=== PATIENT | male | born 1940 | race Hispanic/Latino ===

== ENCOUNTER 2017-11-29 15:32 | Emergency (ER) | payer MEDICARE ==
[2017-11-29] MEDS ORDERED: ONDANSETRON HCL 4 MG/2 ML VIAL ONE (15:41)
[2017-11-29] MEDS ORDERED: SODIUM CHLORIDE 0.9% 1000ML 1,000 ML IV ONE (16:01)
[2017-11-29 16:10] LABS: HEMATOCRIT 40.5 % (42-54); LYMPHOCYTES % (AUTO) 24.7 % (21.0-51.0); MEAN CORPUSCULAR HEMOGLOBIN 30.5 pg (27.0-33.0); MEAN CORPUSCULAR HGB CONC 35.2 g/dL (32.0-36.0); MEAN CORPUSCULAR VOLUME 86.7 fL (79-99); MONOCYTES % (AUTO) 10.4 % (3.0-13.0); NEUTROPHILS % (AUTO) 62.9 % (40.0-77.0); NUCLEATED RED BLOOD CELLS 0.2 % (0.0-0.19); PLATELET COUNT (AUTO) 129 K/uL (130-400); RED BLOOD CELL COUNT(AUTO) 4.67 MIL/uL (4.50-6.20); RED CELL DISTRIBUTION WIDTH 14.7 % (11.0-15.5); WHITE BLOOD COUNT (AUTO) 3.6 K/uL (4.8-10.8)
[2017-11-29 16:22] LABS: CREATININE 1.3 mg/dL (0.5-1.5)
[2017-11-29 16:23] LABS: INR 0.9 (0.85-1.15); PARTIAL THROMBOPLASTIN TIME 27.5 SEC (26.3-35.5); PROTHROMBIN TIME 9.5 SEC (9.6-11.6)
[2017-11-29 16:48] LABS: ALBUMIN 3.4 g/dL (3.5-5.0); BILIRUBIN,TOTAL 0.8 mg/dL (0.2-1.0); CREATINE KINASE MB 3.2 ng/mL (0.5-3.6)
[2017-11-29 16:50] LABS: APPEARANCE,URINE Clear (CLEAR); BILIRUBIN,URINE Negative (NEGATIVE); COLOR,URINE Yellow (YELLOW); GLUCOSE, URINE (UA) Negative (NEGATIVE); KETONES,URINE Negative (NEGATIVE); LEUKOCYTE ESTERASE ,URINE Negative (NEGATIVE); NITRATE,URINE Negative (NEGATIVE); OCCULT BLOOD,URINE Negative (NEGATIVE); PROTEIN,URINE POS 1+ (NEGATIVE)
[2017-11-29 16:58] LABS: BACTERIA,URINE Rare /HPF (None Seen); RBC,URINE 0-1 /HPF (0-1); SQUAMOUS EPITHELIAL CELL,UR Rare /LPF (0-2); WBC,URINE 0-1 /HPF (0-1)
[2017-11-29] MEDS ORDERED: HYOSCYAMINE SULFATE 0.125 MG TAB.SUBL SL ONE (18:24)
== END 2017-11-29 18:44 | disposition home or self-care (01) ==
LOC: EDH 15:32
DX: K85.90 Acute pancreatitis without necrosis or infection, unspecified (principal); J10.1 Influenza due to other identified influenza virus with other respiratory manifestations; E11.9 Type 2 diabetes mellitus without complications; I10 Essential (primary) hypertension; R10.84 Generalized abdominal pain; Z88.0 Allergy status to penicillin; Z79.4 Long term (current) use of insulin; R11.2 Nausea with vomiting, unspecified
CPT/HCPCS: 36415; 71045; 74176; 80053; 81001; 82150; 82550; 82553; 83690; 84484; 85025; 85610; 85730; 87804 ×2; 93005; 96361; 96374; 99285; J2405; J7030

== ENCOUNTER 2020-03-29 20:47 | Observation (INO) | payer OTHER, MEDICARE ==
[~2020-03-29] VITALS: Ht 167.6 cm; Wt 87.4 kg
[2020-03-29 21:23] LABS: BASOPHILS % (AUTO) 1.7 % (0.0-5.0); EOSINOPHILS % (AUTO) 2.6 % (0.0-8.0); HEMATOCRIT 34.9 % (42-54); LYMPHOCYTES % (AUTO) 18.4 % (21.0-51.0); MEAN CORPUSCULAR HEMOGLOBIN 29.8 pg (27.0-33.0); MEAN CORPUSCULAR HGB CONC 33.5 g/dL (32.0-36.0); MEAN CORPUSCULAR VOLUME 88.8 fL (79-99); MONOCYTES % (AUTO) 7.6 % (3.0-13.0); NEUTROPHILS % (AUTO) 69.2 % (40.0-77.0); PLATELET COUNT (AUTO) 173 K/uL (130-400); RED BLOOD CELL COUNT(AUTO) 3.93 MIL/uL (4.50-6.20); RED CELL DISTRIBUTION WIDTH 13.9 % (11.0-15.5); WHITE BLOOD COUNT (AUTO) 6.4 K/uL (4.8-10.8)
[2020-03-29 21:35] LABS: CREATININE 1.6 mg/dL (0.5-1.5); POTASSIUM 4.2 mmol/L (3.5-5.1)
[2020-03-29 21:39] LABS: INR 0.94 (0.85-1.15); PARTIAL THROMBOPLASTIN TIME 25.8 SEC (26.3-35.5); PROTHROMBIN TIME 10.2 SEC (9.6-11.6)
[2020-03-29 21:40] LABS: ALBUMIN 3.2 g/dL (3.5-5.0); BILIRUBIN,TOTAL 0.7 mg/dL (0.2-1.0); TOTAL PROTEIN, SERUM 6.6 g/dL (6.0-8.3)
[2020-03-29 21:45] LABS: ABG BASE EXCESS -0.4 mmol/L (-2.0-3.0); ABG HCO3 24.1 mmol/L (21.0-28.0); ABG OXYGEN SATURATION 93.4 % (95.0-99.0); ABG PCO2 39 mmHg (35-48)
[2020-03-29] MEDS ORDERED: FUROSEMIDE 10 MG/ML 4ML VIAL ONE (22:40)
[2020-03-29] MEDS ORDERED: FUROSEMIDE 10 MG/ML 2ML VIAL ONE (22:40)
[2020-03-29] MEDS ORDERED: SODIUM CHLORIDE 0.9% 500 ML IV ONE (22:49)
[2020-03-29 23:15] LABS: APPEARANCE,URINE Clear (CLEAR); BILIRUBIN,URINE Negative (NEGATIVE); COLOR,URINE Yellow (YELLOW); GLUCOSE, URINE (UA) 500 mg/dL (NEGATIVE); KETONES,URINE Negative (NEGATIVE); LEUKOCYTE ESTERASE ,URINE Negative (NEGATIVE); NITRATE,URINE Negative (NEGATIVE); OCCULT BLOOD,URINE Negative (NEGATIVE); PH,URINE 6.5 (5.0-8.0); PROTEIN,URINE POS 1+ mg/dL (NEGATIVE)
[2020-03-29 23:23] LABS: RBC,URINE None Seen /HPF (0-1); WBC,URINE None Seen /HPF (0-1)
[2020-03-29 23:24] LABS: BACTERIA,URINE Rare /HPF (None Seen); MUCUS,URINE Moderate LPF (None Seen); RENAL EPITHELIAL CELLS,URINE Few /HPF (None Seen); SQUAMOUS EPITHELIAL CELL,UR Moderate /HPF (0-2)
[2020-03-30 03:30] VITALS: BP 136/68
--- NOTE | 2020-03-30 04:00 | NUR ---
ARRIVED ON UNIT. AMBULATED TO THE BED. C/O OF SOB WITH EXERTION. CURRENTLY ON RA 97% SATS. STATES HE FEELS BETTER AFTER LASIX GIVEN IN ED. DENIES CHEST PAIN. DOES HAVE BLE +1 PITTING EDEMA. ADVISED PATIENT TO USE URINAL FOR PROPER MEASUREMENT OF OUTPUT. CALL LIGHT WITHIN REACH. WILL CONTINUE TO MONITOR.
[2020-03-30] MEDS ORDERED: MAGNESIUM 2GM PREMIX 50ML 50 ML IV PRN (06:00)
[2020-03-30] MEDS ORDERED: TEMAZEPAM 7.5 MG CAPSULE PO PRN (06:30)
[2020-03-30] MEDS ORDERED: HYDRALAZINE HCL 20 MG/ML VIAL IV PRN (06:30)
[2020-03-30] MEDS ORDERED: ACETAMINOPHEN 325 MG TAB PO PRN (06:30)
[2020-03-30] MEDS ORDERED: ONDANSETRON HCL 4 MG/2 ML VIAL IVP PRN (06:30)
[2020-03-30 08:09] VITALS: BP 139/69
[2020-03-30 08:38] LABS: EOSINOPHILS % (AUTO) 3.3 % (0.0-8.0); HEMATOCRIT 37.2 % (42-54); LYMPHOCYTES % (AUTO) 22.2 % (21.0-51.0); MEAN CORPUSCULAR HEMOGLOBIN 29.6 pg (27.0-33.0); MEAN CORPUSCULAR HGB CONC 33.1 g/dL (32.0-36.0); MEAN CORPUSCULAR VOLUME 89.6 fL (79-99); PLATELET COUNT (AUTO) 183 K/uL (130-400); RED BLOOD CELL COUNT(AUTO) 4.15 MIL/uL (4.50-6.20); RED CELL DISTRIBUTION WIDTH 13.9 % (11.0-15.5)
[2020-03-30] MEDS: PANTOPRAZOLE SODIUM 40 MG TABLET.DR PO SCH (08:59)
[2020-03-30] MEDS: LISINOPRIL 5 MG TABLET PO SCH (08:59)
[2020-03-30] MEDS: ASPIRIN 81MG TAB.CHEW PO SCH (08:59)
[2020-03-30] MEDS: METOPROLOL TARTRATE 25 MG TAB PO SCH ×2 (09:00→20:40)
[2020-03-30] MEDS: FUROSEMIDE 20 MG TABLET PO SCH ×2 (09:00→20:40)
[2020-03-30] MEDS: ENOXAPARIN SODIUM 40 MG/0.4 ML SYRINGE SQ SCH (09:00)
[2020-03-30 09:04] LABS: B-TYPE NATRIURETIC PEPTIDE 254 pg/mL (0-100)
[2020-03-30 09:07] LABS: CARBON DIOXIDE 32 mmol/L (21-32); CHLORIDE 102 mmol/L (101-111); CREATINE KINASE, TOTAL 208 U/L (21-232); CREATININE 1.7 mg/dL (0.5-1.5); GLOMERULAR FILTR. RATE CALC 42 mL/min (>60); GLUCOSE,RANDOM 168 mg/dL (70-105); MYOGLOBIN 387 ng/mL (10-92); SODIUM SERUM 138 mmol/L (136-145); TROPONIN I < 0.04 ng/mL (0.00-0.06); UREA NITROGEN, BLOOD 19 mg/dL (7-18)
[2020-03-30 12:15] VITALS: BP 143/75
[2020-03-30] MEDS ORDERED: ISOS30TA6 PO (12:27)
[2020-03-30] MEDS ORDERED: LEVO50TA11 PO (12:27)
[2020-03-30] MEDS ORDERED: PANT40TA PO (12:27)
[2020-03-30] MEDS ORDERED: LOSA100T58 PO (12:27)
[2020-03-30] MEDS ORDERED: ATEN25TA PO (12:27)
[2020-03-30] MEDS ORDERED: SUCR1TAB2 PO (12:27)
[2020-03-30] MEDS ORDERED: INSU100V12 SQ ×2 (12:33)
[2020-03-30] MEDS ORDERED: ASPI-1197 PO (12:33)
[2020-03-30] MEDS ORDERED: INSU100V39 SQ (12:33)
[2020-03-30] MEDS ORDERED: GLIP5TAB11 PO (12:33)
[2020-03-30] MEDS ORDERED: SUCRALFATE 1 GM TABLET PO SCH (16:30)
[2020-03-30] MEDS: INSULIN LISPRO 100 UNIT/ML 3ML SQ SCH (16:51)
[2020-03-30 16:56] VITALS: BP 150/77
[2020-03-30 19:00] VITALS: BP 152/72
--- NOTE | 2020-03-30 20:40 | NUR ---
MEDS SHIFT ASSESSMENT DONE, PLEASE REFER TO CHART. DUE MEDS ADMINISTERED, TOLERATED WELL. KEPT RESTED AND COMFORTABLE. CALL LIGHT WITHIN REACH. WILL MONITOR PT. Addendum: 03/30/20 at 2359 by ARACELI PASTRANA RN RN Amended: Links added.
[2020-03-31] VITALS: BP 147/70
--- NOTE | 2020-03-31 02:00 | NUR ---
ROUNDS OT RESTING WELL, FAIRLY ASLEEP. NO DISTRESS NOTED. KEPT UNDISTURBED FOR NOW. WILL MONITOR PT. CALL LIGHT WITHIN REACH.
--- NOTE | 2020-03-31 03:30 | NUR ---
DYSPNEA PT CLAIMS OF DIFFICULTY BREATHING. V/S MONITORED WITH O2 SAT=98% ON RA. RE-POSITIONED PT IN BED WITH HOB ELEVATED. O2 AT 2LPM VIA NC PROVIDED. WILL RE-ASSESS PT.
[2020-03-31 04:00] VITALS: BP 134/69
[2020-03-31 05:12] LABS: HEMATOCRIT 39.6 % (42-54); MEAN CORPUSCULAR HEMOGLOBIN 29.8 pg (27.0-33.0); MEAN CORPUSCULAR HGB CONC 33.6 g/dL (32.0-36.0); MEAN CORPUSCULAR VOLUME 88.6 fL (79-99); RED BLOOD CELL COUNT(AUTO) 4.47 MIL/uL (4.50-6.20); RED CELL DISTRIBUTION WIDTH 13.6 % (11.0-15.5); WHITE BLOOD COUNT (AUTO) 6.1 K/uL (4.8-10.8)
[2020-03-31 05:37] LABS: CREATININE 1.7 mg/dL (0.5-1.5); MAGNESIUM 2.2 mg/dL (1.80-2.40); POTASSIUM 4.1 mmol/L (3.5-5.1)
[2020-03-31] MEDS: GLIPIZIDE 5 MG TABLET PO SCH (06:40)
--- NOTE | 2020-03-31 06:43 | NUR ---
MEDS PT IS ALREADY UP AND SITTING DOWN IN THE RECLINER. NO COMPLAINTS VERBALIZED. DUE MEDS ADMINISTERED, TOLERATED WELL. KEPT RESTED. FOR MORE CARE.
[2020-03-31] MEDS: LEVOTHYROXINE 50 MCG TABLET PO SCH (07:49)
[2020-03-31] MEDS: INSULIN LISPRO 100 UNIT/ML 3ML SQ SCH ×3 (07:57→16:58)
[2020-03-31 08:16] VITALS: BP 125/68
--- NOTE | 2020-03-31 08:16 | NUR ---
CARDIOLOGY CONSULT DR GARCIA SAID HE WILL FOLLOW WITH PATIENT AN OUTPATIENT IN 1 WEEK. HE HAS ALREADY READ THE 2D ECHO AND PATIENT OK FOR DISCHARGE ON CARDIOLOGY STANDPOINT.
[2020-03-31] MEDS: PANTOPRAZOLE SODIUM 40 MG TABLET.DR PO SCH (08:49)
[2020-03-31] MEDS: FUROSEMIDE 20 MG TABLET PO SCH ×2 (08:49→20:15)
[2020-03-31] MEDS: ISOSORBIDE MONO 30MG TAB SR PO SCH (08:52)
[2020-03-31] MEDS: LOSARTAN 100 MG TABLET PO SCH (08:52)
[2020-03-31] MEDS: ASPIRIN 81MG TAB.CHEW PO SCH (08:52)
[2020-03-31] MEDS: LISINOPRIL 5 MG TABLET PO SCH (08:53)
[2020-03-31] MEDS: METOPROLOL TARTRATE 25 MG TAB PO SCH ×2 (08:54→20:15)
[2020-03-31] MEDS: ATENOLOL 25 MG TABLET PO SCH (08:54)
[2020-03-31] MEDS: ENOXAPARIN SODIUM 40 MG/0.4 ML SYRINGE SQ SCH (08:55)
[2020-03-31 12:25] VITALS: BP 106/57
[2020-03-31 16:30] VITALS: BP 126/61
[2020-03-31 20:00] VITALS: BP 116/60
[2020-04-01] VITALS: BP 126/62
[2020-04-01 04:02] LABS: EOSINOPHILS % (AUTO) 2.8 % (0.0-8.0); HEMATOCRIT 37.9 % (42-54); LYMPHOCYTES % (AUTO) 24.5 % (21.0-51.0); MEAN CORPUSCULAR HEMOGLOBIN 29.4 pg (27.0-33.0); MEAN CORPUSCULAR VOLUME 86.3 fL (79-99); MONOCYTES % (AUTO) 9.7 % (3.0-13.0); NEUTROPHILS % (AUTO) 60.7 % (40.0-77.0); PLATELET COUNT (AUTO) 202 K/uL (130-400); RED BLOOD CELL COUNT(AUTO) 4.39 MIL/uL (4.50-6.20); RED CELL DISTRIBUTION WIDTH 13.7 % (11.0-15.5); WHITE BLOOD COUNT (AUTO) 6.4 K/uL (4.8-10.8)
[2020-04-01 04:04] VITALS: BP 90/47
[2020-04-01 04:25] LABS: ALANINE AMINOTRANSFERASE 25 U/L (12-78); ALBUMIN 3.4 g/dL (3.5-5.0); ASPARTATE AMINOTRANSFERASE 24 U/L (10-37); BILIRUBIN,TOTAL 1.2 mg/dL (0.2-1.0); CARBON DIOXIDE 28 mmol/L (21-32); CHLORIDE 98 mmol/L (101-111); CREATININE 1.8 mg/dL (0.5-1.5); GLOMERULAR FILTR. RATE CALC 39 mL/min (>60); GLUCOSE,RANDOM 254 mg/dL (70-105); POTASSIUM 4.2 mmol/L (3.5-5.1); SODIUM SERUM 134 mmol/L (136-145); TOTAL PROTEIN, SERUM 6.8 g/dL (6.0-8.3); UREA NITROGEN, BLOOD 30 mg/dL (7-18)
[2020-04-01] MEDS: GLIPIZIDE 5 MG TABLET PO SCH (06:10)
[2020-04-01] MEDS: LEVOTHYROXINE 50 MCG TABLET PO SCH (08:15)
[2020-04-01] MEDS: METOPROLOL TARTRATE 25 MG TAB PO SCH (08:15)
[2020-04-01] MEDS: LOSARTAN 100 MG TABLET PO SCH (08:16)
[2020-04-01] MEDS: LISINOPRIL 5 MG TABLET PO SCH (08:16)
[2020-04-01] MEDS: PANTOPRAZOLE SODIUM 40 MG TABLET.DR PO SCH (08:16)
[2020-04-01] MEDS: ISOSORBIDE MONO 30MG TAB SR PO SCH (08:16)
[2020-04-01] MEDS: ATENOLOL 25 MG TABLET PO SCH (08:16)
[2020-04-01] MEDS: ENOXAPARIN SODIUM 40 MG/0.4 ML SYRINGE SQ SCH (08:19)
[2020-04-01] MEDS: ASPIRIN 81MG TAB.CHEW PO SCH (08:19)
[2020-04-01] MEDS: INSULIN LISPRO 100 UNIT/ML 3ML SQ SCH ×2 (08:20→11:38)
[2020-04-01 08:30] VITALS: BP 107/56
[2020-04-01] MEDS ORDERED: SODIUM CHLORIDE 0.9% 500ML 500 ML IV SCH (11:15)
[2020-04-01 11:30] VITALS: BP 107/56
[2020-04-01 15:19] LABS: CREATININE 1.7 mg/dL (0.5-1.5); POTASSIUM 4.3 mmol/L (3.5-5.1)
--- NOTE | 2020-04-01 15:49 | NUR ---
DCP CM met with pt discussed dc plans. Pt is independent prior to admission, lives at home w/a female friend María Beltran . Denies any other equipments/services. Feels safe to go back home, still drives, friend able to assist with transportation as necessary, pt arranges own needs. DC plan to home once stable. CM to cont to follow up. Addendum: 04/01/20 at 1551 by RAYMOND CHANEY LVN CM Amended: Links added.
[2020-04-01 16:49] VITALS: BP 127/61
--- NOTE | 2020-04-01 17:40 | NUR ---
DISCHARGE VERBAL & WRITTEN DISCHARGE INSTRUCTIONS REVIEWED & GIVEN TO PT IN [place]. QUESTIONS ENCOURAGED & CLARIFIED. PROPER CARE & MGT OF SOB REVIEWED. STOPPED MEDICATION REVIEWED. PT INFORMED TO F/U W/PCP, DR ZAYAS, SCHEDULED. TELE CARLITA REMOVED EARLIER. IV DC'D @ THIS TIME. [place] DIRECTOR NEWS [place] [facility] [place] TO GATHER PERSONAL BELONGINGS.
--- NOTE | 2020-04-01 18:30 | NUR ---
DISCHARGE FAMILY HERE TO TAKE PT HOME. PT TAKEN TO PRIVATE VEHICLE VIA WC BY MYSELF, Bri SANDERSON RN. NO DISTRESS NOTED.
[2020-04-02] MEDS ORDERED: LEVOTHYROXINE 50 MCG TABLET PO SCH (06:30)
== END 2020-04-01 18:30 | disposition home or self-care (01) ==
LOC: EDH 20:47 → EDHIP 23:09 → 4AH 03-30 03:14
PROVIDERS: ADMIT Internal Medicine Pulmonary Disease; ATTEND Internal Medicine Pulmonary Disease
DX: J98.11 Atelectasis (principal); I13.0 Hypertensive heart and chronic kidney disease with heart failure and stage 1 through stage 4 chronic kidney disease, or unspecified chronic kidney disease; E11.22 Type 2 diabetes mellitus with diabetic chronic kidney disease; I50.9 Heart failure, unspecified; N18.3 Chronic kidney disease, stage 3 (moderate); I25.10 Atherosclerotic heart disease of native coronary artery without angina pectoris; E66.9 Obesity, unspecified; Z79.4 Long term (current) use of insulin; Z79.82 Long term (current) use of aspirin; Z87.891 Personal history of nicotine dependence; Z88.0 Allergy status to penicillin; Z95.1 Presence of aortocoronary bypass graft; Z79.899 Other long term (current) drug therapy
CPT/HCPCS: 36415 ×4; 36600; 71045 ×2; 71250; 78582; 80048 ×3; 80053 ×2; 81001; 82550 ×2; 82803; 82948 ×11; 83735 ×4; 83874; 83880 ×3; 84145; 84484 ×3; 85025 ×3; 85027; 85378; 85610; 85730; 93005 ×3; 93306; 93356; 93970; 94760; 96365; 96366; 96372 ×3; 99285; A9540; A9558; G0378 ×2; J1650 ×3; J1940 ×2; J3475; J7050

== ENCOUNTER 2020-05-25 13:25 | Observation (INO) | payer OTHER, MEDICARE ==
[~2020-05-25] VITALS: Ht 165.1 cm; Wt 89.2 kg
[~2020-05-25 13:25] MED LIST: ASPI-1197 PO; ATEN25TA PO; GLIP5TAB11 PO; INSU100V12 SQ; INSU100V39 SQ; ISOS30TA6 PO; LEVO50TA11 PO; PANT40TA PO
[2020-05-25 13:52] LABS: BASOPHILS % (AUTO) 1.4 % (0.0-5.0); EOSINOPHILS % (AUTO) 2.7 % (0.0-8.0); HEMATOCRIT 36.9 % (42-54); LYMPHOCYTES % (AUTO) 21.2 % (21.0-51.0); MEAN CORPUSCULAR HEMOGLOBIN 29.7 pg (27.0-33.0); MEAN CORPUSCULAR HGB CONC 33.3 g/dL (32.0-36.0); MEAN CORPUSCULAR VOLUME 89.1 fL (79-99); MONOCYTES % (AUTO) 8.8 % (3.0-13.0); NEUTROPHILS % (AUTO) 65.7 % (40.0-77.0); PLATELET COUNT (AUTO) 154 K/uL (130-400); RED BLOOD CELL COUNT(AUTO) 4.14 MIL/uL (4.50-6.20); RED CELL DISTRIBUTION WIDTH 13.8 % (11.0-15.5); WHITE BLOOD COUNT (AUTO) 5.7 K/uL (4.8-10.8)
[2020-05-25] MEDS ORDERED: ASPIRIN 325MG EC TAB 325 MG TABLET.DR PO ONE (14:11)
[2020-05-25] MEDS ORDERED: FUROSEMIDE 10 MG/ML 4ML VIAL ONE (14:11)
[2020-05-25 14:18] LABS: INR 0.95 (0.85-1.15); PROTHROMBIN TIME 10.3 SEC (9.6-11.6)
[2020-05-25 14:25] LABS: BILIRUBIN,TOTAL 0.8 mg/dL (0.2-1.0); POTASSIUM 4.2 mmol/L (3.5-5.1); TOTAL PROTEIN, SERUM 6.8 g/dL (6.0-8.3)
[2020-05-25 14:48] LABS: B-TYPE NATRIURETIC PEPTIDE 485 pg/mL (0-100)
[2020-05-25 14:59] LABS: CREATININE 1.6 mg/dL (0.5-1.5)
[2020-05-25 15:01] LABS: ALBUMIN 3.4 g/dL (3.5-5.0)
[2020-05-25] MEDS ORDERED: ONDANSETRON HCL 4 MG/2 ML VIAL IV PRN (15:45)
[2020-05-25] MEDS ORDERED: HYDRALAZINE HCL 20 MG/ML VIAL IV PRN (15:45)
[2020-05-25] MEDS ORDERED: ACETAMINOPHEN 325 MG TAB PO PRN (15:45)
[2020-05-25] MEDS ORDERED: HEPARIN SODIUM 5000UNIT/ML 1ML VIAL ONE (20:20)
[2020-05-25] MEDS ORDERED: FUROSEMIDE 10 MG/ML 2ML VIAL ONE (20:20)
[2020-05-25] MEDS ORDERED: FAMOTIDINE/PF 20 MG/2 ML VIAL IV ONE (20:21)
[2020-05-25] MEDS: HEPARIN SODIUM 5000UNIT/ML 1ML VIAL SQ SCH (21:00)
[2020-05-25] MEDS ORDERED: FAMOTIDINE 20MG TAB 20 MG TAB PO SCH (21:00)
[2020-05-25] MEDS: FUROSEMIDE 10 MG/ML 2ML VIAL IV SCH (21:00)
[2020-05-26 04:29] LABS: BASOPHILS % (AUTO) 1.7 % (0.0-5.0); EOSINOPHILS % (AUTO) 2.8 % (0.0-8.0); HEMATOCRIT 39.4 % (42-54); LYMPHOCYTES % (AUTO) 19.3 % (21.0-51.0); MEAN CORPUSCULAR HEMOGLOBIN 29.8 pg (27.0-33.0); MEAN CORPUSCULAR HGB CONC 33.8 g/dL (32.0-36.0); MEAN CORPUSCULAR VOLUME 88.1 fL (79-99); MONOCYTES % (AUTO) 8.1 % (3.0-13.0); NEUTROPHILS % (AUTO) 67.8 % (40.0-77.0); PLATELET COUNT (AUTO) 111 K/uL (130-400); RED BLOOD CELL COUNT(AUTO) 4.47 MIL/uL (4.50-6.20); RED CELL DISTRIBUTION WIDTH 13.9 % (11.0-15.5); WHITE BLOOD COUNT (AUTO) 6.4 K/uL (4.8-10.8)
[2020-05-26 04:49] LABS: CARBON DIOXIDE 30 mmol/L (21-32); CHLORIDE 103 mmol/L (101-111); CREATININE 1.6 mg/dL (0.5-1.5); GLOMERULAR FILTR. RATE CALC 45 mL/min (>60); GLUCOSE,RANDOM 81 mg/dL (70-105); POTASSIUM 3.9 mmol/L (3.5-5.1); SODIUM SERUM 140 mmol/L (136-145); UREA NITROGEN, BLOOD 24 mg/dL (7-18)
[2020-05-26 05:25] VITALS: BP 146/68
[2020-05-26] MEDS: LEVOTHYROXINE 50 MCG TABLET PO SCH (06:10)
[2020-05-26] MEDS: INSULIN HUMULIN R 100 UNIT/ML 3ML SQ SCH ×4 (06:11→21:23)
[2020-05-26 07:17] VITALS: BP 137/80
[2020-05-26] MEDS: ASPIRIN 81MG TAB.CHEW PO SCH (09:55)
[2020-05-26] MEDS: FAMOTIDINE 20MG TAB 20 MG TAB PO SCH (09:56)
[2020-05-26] MEDS: HEPARIN SODIUM 5000UNIT/ML 1ML VIAL SQ SCH ×2 (09:57→20:05)
[2020-05-26] MEDS: FUROSEMIDE 10 MG/ML 2ML VIAL IV SCH ×2 (09:58→20:02)
[2020-05-26 10:34] VITALS: BP 116/59
--- NOTE | 2020-05-26 16:57 | NUR ---
RD NOTIFICATION pt admitted with CHF exacerbation. Tolerating 60gm CC, Heart Healthy diet order with no report of GI distress, Good PO intake at 100%. PMH HTN, CAD, CABG, CKD, DM, Hypothyroid. BUN 24, Cr 1.6, GFR 45, BG 202, Alb 3.4, A1C 9.0. Noted 2+ BLE edema. -S/S malnutrition. Recommend continue current diet order. RD to continue to monitor and follow up with nutrition education Please notify as additional nutrition concerns arise. Thank you.
[2020-05-26 20:43] VITALS: BP 152/7
[2020-05-26 23:58] VITALS: BP 143/62
--- NOTE | 2020-05-27 04:05 | NUR ---
HEART RATE PAT, PCP, RECORDED HEART RATE OF 35. Pt IS ON A TELE PACK, [facility]. CONFIRMED HEART RATE IN THE 60s WITH OCCASIONAL PVCs. Pt HAS NOT BEEN IN THE 30s. Pt DENIES ANY PAIN OR DISCOMFORT.
[2020-05-27 04:06] VITALS: BP 149/53
[2020-05-27] MEDS: LEVOTHYROXINE 50 MCG TABLET PO SCH (06:16)
[2020-05-27] MEDS: INSULIN HUMULIN R 100 UNIT/ML 3ML SQ SCH ×3 (06:17→16:30)
[2020-05-27 06:19] LABS: HEMATOCRIT 40.5 % (42-54); MEAN CORPUSCULAR HEMOGLOBIN 29.6 pg (27.0-33.0); MEAN CORPUSCULAR HGB CONC 33.1 g/dL (32.0-36.0); MEAN CORPUSCULAR VOLUME 89.6 fL (79-99); RED BLOOD CELL COUNT(AUTO) 4.52 MIL/uL (4.50-6.20); RED CELL DISTRIBUTION WIDTH 13.8 % (11.0-15.5); WHITE BLOOD COUNT (AUTO) 5.7 K/uL (4.8-10.8)
[2020-05-27 06:41] LABS: CREATININE 1.9 mg/dL (0.5-1.5); MAGNESIUM 2.1 mg/dL (1.80-2.40); POTASSIUM 4.2 mmol/L (3.5-5.1)
[2020-05-27 08:00] VITALS: BP 138/68
[2020-05-27] MEDS: FAMOTIDINE 20MG TAB 20 MG TAB PO SCH (08:54)
[2020-05-27] MEDS: ASPIRIN 81MG TAB.CHEW PO SCH (08:54)
[2020-05-27] MEDS: FUROSEMIDE 10 MG/ML 2ML VIAL IV SCH (08:55)
[2020-05-27] MEDS: HEPARIN SODIUM 5000UNIT/ML 1ML VIAL SQ SCH (08:56)
[2020-05-27 11:30] VITALS: BP 135/51
--- NOTE | 2020-05-27 17:33 | NUR ---
DCP CM spoke to pt discussed dc plans. Pt is independent prior to admission, lives at home alone, sister María lives close by and has a friend Janel Handy that is able to assist w/transportation. Denies any equipments/services. Feels safe to go back home, still drives, sister able to assist with transportation and needs as necessary. DC plan to home once stable. Dtr contact in case needed: Ellyn Perez [phone] Addendum: 05/27/20 at 1735 by RAYMOND CHANEY LVN CM Amended: Links added.
== END 2020-05-27 18:20 | disposition home or self-care (01) ==
LOC: EDH 13:25 → EDHIP 15:37 → 3AH 05-26 05:36 → 4CH 05-26 17:46
PROVIDERS: ADMIT Internal Medicine Critical Care Medicine; ATTEND Internal Medicine Critical Care Medicine
DX: R00.8 Other abnormalities of heart beat (principal); I13.0 Hypertensive heart and chronic kidney disease with heart failure and stage 1 through stage 4 chronic kidney disease, or unspecified chronic kidney disease; E11.22 Type 2 diabetes mellitus with diabetic chronic kidney disease; I50.33 Acute on chronic diastolic (congestive) heart failure; N18.3 Chronic kidney disease, stage 3 (moderate); I25.10 Atherosclerotic heart disease of native coronary artery without angina pectoris; E78.5 Hyperlipidemia, unspecified; E03.9 Hypothyroidism, unspecified; Z20.828 Contact with and (suspected) exposure to other viral communicable diseases; Z95.1 Presence of aortocoronary bypass graft; Z79.4 Long term (current) use of insulin; Z79.82 Long term (current) use of aspirin; Z79.899 Other long term (current) drug therapy; Z87.891 Personal history of nicotine dependence
CPT/HCPCS: 36415 ×3; 71045; 80048 ×2; 80053; 82550; 82728; 82948 ×7; 83036; 83735; 83880; 84145; 84484; 85025 ×2; 85027; 85378; 85610; 85730; 86140; 87426; 93005; 96372 ×2; 96374; 96376 ×2; 99285; A4510; G0378 ×10; J1644 ×4; J1815 ×4; J1940 ×5; J3490; U0003

== ENCOUNTER → 2025-06-27 | Outpatient (CLI) | payer OTHER, MEDICARE ==
[~2025-06-27] MED LIST changes: -ATEN25TA PO; -GLIP5TAB11 PO; +GLIP5TAB15 PO; -INSU100V39 SQ; +INSU100V45 SQ; -ISOS30TA6 PO; +ISOS30TA92 PO
--- NOTE | 2025-06-27 14:26 | HMCIMG ---
US ABDOMINAL COMPLETE REASON: Chronic renal disease COMPARISON: Prior CT from 0-2017 is available. FINDINGS: There is normal sonographic appearance of the liver. The liver length is 17.1 cm. There are no focal mass lesions. The liver is not enlarged.The gallbladder has multiple stones which is shadowing.. Kidneys appear normal in size and appearance. The right kidney measures 10.0 x 5.1 x 4.6 cm. The left kidney measures 10.2 x 5.2 x 4.9 cm. There is no evidence of mass, stone or hydronephrosis. Spleen and common duct appear normal. The spleen length is 10.1 cm. Aorta and inferior vena cava appear normal. The pancreas appears normal as well. IMPRESSION: Cholelithiasis Otherwise the remaining upper abdomen sonogram demonstrated no abnormality..
== END | disposition home or self-care (01) ==
LOC: RAH 08:28
PROVIDERS: ATTEND Family Medicine
DX: K80.20 Calculus of gallbladder without cholecystitis without obstruction (principal); N18.31 Chronic kidney disease, stage 3a
CPT/HCPCS: 76700

== ENCOUNTER → 2025-10-13 | Outpatient (CLI) | payer OTHER, MEDICARE ==
--- NOTE | 2025-10-14 10:47 | HMCIMG ---
STUDY: X-RAY OF THE LEFT SHOULDER, 2 VIEWS HISTORY: Acute pain of the left shoulder. TECHNIQUE: AP and scapular Y views of the left shoulder are submitted for interpretation. COMPARISON: None provided. FINDINGS: Bones and joints: Bone mineralization is within normal limits. Mild degenerative changes are present in the acromioclavicular and glenohumeral joints with minimal joint space narrowing and small marginal osteophytes. No acute fracture, dislocation, or aggressive osseous lesion is identified. Soft tissues: Periarticular soft tissues are unremarkable without focal swelling, soft tissue gas, or radiopaque foreign body. IMPRESSION: * Mild degenerative changes of the left acromioclavicular and glenohumeral joints, compatible with early osteoarthritis; correlate with focal tenderness and [id number] limitations as a potential source of shoulder pain. * No radiographic evidence of acute fracture or dislocation of the left shoulder. /[place]
== END | disposition home or self-care (01) ==
LOC: RAH 11:04
PROVIDERS: ATTEND Internal Medicine
DX: M19.012 Primary osteoarthritis, left shoulder (principal); M25.512 Pain in left shoulder; M25.712 Osteophyte, left shoulder
CPT/HCPCS: 73030